=== PATIENT | female | born 1965 | race Caucasian/White ===

== ENCOUNTER 2025-02-06 12:26 | Outpatient (OUT) | payer OTHER, SELFPAY ==
--- NOTE | 2025-02-06 12:33 | ECG_ITS ---
[facility] Test Date: 2025-02-06 Pat Name: JUSTIN PATIÑO Department: Room: - Gender: Female Ground Host/Hostess: : 1965 Requested By: JACKIE CEBALLOS Order Number: [id number] Reading MD: WILLIAM MCALLISTER M.D. Measurements Intervals [place] Rate: 60 P: 62 ID: 159 QRS: -20 QRSD: 81 T: 24 QT: 402 QTc: 405 Interpretive Statements SINUS RHYTHM POSSIBLE LEFT ATRIAL ENLARGEMENT [-0.1mV P WAVE IN V1/V2] Abnormal ECG No previous ECG available for comparison Electronically Signed On 02-06-2025 21:11:22 EDT by WILLIAM MCALLISTER M.D.
== END 2025-02-06 12:27 | disposition home or self-care (01) ==
LOC: PST 12:27
PROVIDERS: PCP Nurse Practitioner Family; Visit Provider Obstetrics & Gynecology
DX: Z01.810 Encounter for preprocedural cardiovascular examination (principal); N95.0 Postmenopausal bleeding
CPT/HCPCS: 93005

== ENCOUNTER 2025-03-05 07:22 | Outpatient (OUT) | payer OTHER, SELFPAY ==
--- OUTSIDE RECORDS SUMMARY | 2025-03-05 07:25 | XMS_ITS | Clinical Summary ---
Author Organization [facility] Address [address] [place] [address] Care Team Providers Care Lacquer Dipping Machine Operator Name Role Phone Reyna Ferreira MD Primary Care Provider Allergies No known active allergies Medications Red Yeast Rice Extract (RED YEAST RICE PO) Take by mouth. Active glucosamine-cho ndroitin 500-400 MG tablet Take 1 tablet by mouth in the morning and 1 tablet in the evening and 1 tablet before bedtime. Active Collagen-Vitami n C-Biotin (COLLAGEN 1500/C PO) Take by mouth. Active Multiple Vitamin (multivitamin) capsule Take 1 capsule by mouth in the morning. Active LUTEIN PO Take by mouth. Active omega-3 (Fish Oil) 1000 MG capsule 1 capsule 1 (one) time each day at the same time. 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/2023 LPRD (laryngopharyngeal reflux disease) 08/30/20 23 Melanocytic nevi of trunk 08/30/2023 Sleep disorder 08/30/2023 Encounters Date Type Department Care Team Description 02/14/2025 Abstract [facility] [address] [address] Evelia Villaseñor LPN 02/12/2025 1:30 PM EDT Office Visit [facility] [address] [place] [address] Reyna Ferreira MD Abnormal EKG; Left atrial enlargement 02/12/2025 Travel 02/11/2025 3:00 PM EDT Office Visit [facility] [address] [place] [address] Joyce Bruno NP Abnormal finding on EKG (Primary Dx) 02/11/20[address] [facility] [address] [place] [phone] Jackie Myers DO 02/11/2025 Telephone [facility] [address] [place] [address] Reyna Baez MA 02/11/2025 Travel 02/11/2025 Telephone [facility] [address] [place] [address] Lora March MA 02/06/2025 Clinisync Result Encounter [facility] External Department Unsolicited Jackie Myers DO 01/25/2025 Results Follow-Up [facility] [address] [place] [address] Reyna Ferreira MD 01/24/2025 Results Follow-Up [facility] [address] [place] [address] Aan Velez NP Elevated liver enzymes (Primary Dx) 01/23/2025 2:20 PM EDT Consult [facility] [address] [place] [phone] Jackie Myers DO Pre-op examination; Post-menopausal bleeding 01/23/2025 9:30 AM EDT Office Visit [facility] [address] [place] [phone] Dina Chicas NP Dysuria (Primary Dx); Acute cystitis with hematuria 01/23/2025 Bamboo flowsheet [facility] [address] [place] [phone] Dina Chicas NP 01/23/2025 Travel 01/08/2025 2:40 PM EDT Consult [facility] [address] [facility] [place] [phone] Jackie Myers, DO Post-menopausal bleeding 01/08/2025 Bamboo flowsheet [facility] [address] [facility] [place] [phone] Jackie Myers, 01/01/2025 Telephone [facility] [address] [place] [address] Lisseth Hebert MA 01/01/2025 Telephone [facility] [address] [facility] [place] [address] Reyna Ferreira MD 12/31/2024 Telephone [facility] [address] [facility] [place] [address] Jayleen Tran MA 12/28/2024 2:45 PM EDT Ancillary Procedure [facility] [address] [facility] [address] [place] [address] Screening mammogram for breast cancer 12/28/2024 2:00 PM EDT Ancillary Procedure [facility] [address] [facility] [address] [place] [address] Post-menopausal bleeding 12/28/2024 Travel 12/17/2024 1:30 PM EDT Office Visit [facility] [address] [place] [address] Dina Chicas NP Encounter for wellness examination in adult (Primary Dx); Post-menopausal bleeding; Screening mammogram for breast cancer; Hypertriglyceridemi a (CMS/HCC) ; LPRD (laryngopharyngeal reflux disease); Sleep disorder; Screening for diabetes mellitus (DM); Screening for deficiency anemia 12/17/2024 Bamboo flowsheet [facility] [address] [facility] [place] [address] Dina Chicas NP 12/17/2024 Travel from Last 3 Months Immunizations Immunization Administration Dates Next Due Influenza Whole 08/06/2010 Influenza, injectable, MDCK, preservative free, quadrivalent 08/08/2023,07/28/2022 Influenza, injectable, MDCK, quadrivalent 08/15/2019 Influenza, injectable, quadrivalent 07/26/2017 Influenza, injectable, quadr ivalent, preservative free 07/26/2020 Influenza, seasonal, injectable 08/11/2021,08/29 Influenza, seasonal, injecta ble, preservative free 08/10/2024,08/18/2016,08/19/2015,2012 Family History Medical History Relation Name Comments Cancer Cousin Breast Alzheimer's disease Father Cancer Father melanoma on lori t Heart disease Father Cancer Maternal Grandmother Breast Cancer Mother Breast @ age la te 50's Diverticulitis Mother Hypertension Mother Hypertension Sister Relation Name Status Comments Cousin Father Maternal Grandmother Mother Alive Sister Social History Tobacco Use Types Packs/Day Years Used Date Smoking Tobacco: Never Smokeless Tobacco: Never Tobacco Cessation:Counseling Given: Not Answered Alcohol Use Standard Drinks/Week Comments Yes 2 (1 standard drink = 0.6 oz pur e alcohol) caffeine: none AUDIT-C Answer Date Recorded Q1: How often do you have a drink containing alc ohol? 2-4 times a month 08/30/2023 Q2: How many drinks containi ng alcohol do you have on a typical day when you are drinking? 1 or 2 08/30/2023 Q3: How often do you have si x or more drinks on one occasion? Never 08/30/2023 PHQ-2 Answer Date Recorded Patient Health Questionnaire-2 Score 0 02/12/2025 Comments Unknown Sex and Gender Information Value Date Recorded Sex Assigned at Not on file Legal Sex Female 7:28 PM EDT Gender Identity Not on file Sexual Orientation Not on file Last Filed Vital Signs Vital Sign Reading Time Taken Comments Blood Pressure 110/58 02/12/2025 1:28 PM EDT Pulse 73 02/12/2025 1:28 PM EDT Temperature 36.4 C (97.5 F) 01/23/2025 9:33 AM EDT Respiratory Rate 18 12/17/2024 1:27 PM EDT Oxygen Saturation 97% 02/12/2025 1:28 PM EDT Inhaled Oxygen Concentration - - Weight 63.2 kg (139 lb 6.4 oz) 02/12/2025 1:28 P M EDT Height 160 cm (5' 3 ) 02/12/2025 1:28 PM EDT Body Mass Index 24.69 02/12/2025 1:28 PM EDT Plan of Treatment Health Maintenance Due Date Last Done Comments CT Colonography 1965 FIT-DNA 1965 FIT 1965 FOBT 1965 Sigmoidoscopy 1965 Pap Smear 1986 Mammogram 12/28/2025 12/28/2024, 11/0 03/2023, 06/22/2022, Additional history exists Colonoscopy 09/12/2027 09/12/2017 Colorectal Cancer Screening 09/12/2027 Cervical Cancer Screening 08/10/2028 HPV/Cotest 08/10/2028 08/10/2023 Influenza Vaccine Completed 08/10/2024, , 07/28/2022, Additional history exists Procedures Procedure Name Priority Date/Time Associated Diagnosis Comments ECG 12-LEAD 02/06/2025 12:55 PM EDT CULTURE, URINE, ROUTINE Routine 01/23/2025 10:09 AM EDT Dysuria TSH W/REFLEX TO FT4 Routine 01/23/2025 9 :51 AM EDT Encounter for wellness examination in adult LIPID PANEL Routine 01/23/2025 9:51 AM EDT Encounter for wellness examination in adult Hypertriglyceridemi a (CMS/HCC) CBC (INCLUDES DIFF/PLT) Routine 01/23/2025 9:51 AM EDT Encounter for wellness examination in adult Screening for deficiency anemia COMPREHENSIVE METABOLIC PANEL Routine 01/23/2025 9:51 AM EDT Encounter for wellness examination in adult Screening for diabetes mellitus (DM) POCT URINALYSIS DIPSTICK Routine 01/23/2025 9:47 AM EDT Dysuria BI MAMMOGRAM SCREENING TOMOSYNTHESIS BILATERAL Routine 12/28/2024 2:20 PM EDT Screening mammogram for breast cancer US PELVIS TRANSVAGINAL Routine 2:19 PM EDT Post-menopausal bleeding COLONOSCOPY Routine 09/12/2017 12:00 PM EST from Last 3 Months or Most Recently Relevant to Health Maintenance Results * ECG 12-LEAD (02/06/2025 12:55 PM EDT) Anatomical Region Laterality Modality Other 02/06/2025 12:5 5 PM EDT Narrative 02/06/2025 9:11 [place] [address] Electrocardiograph Report Signed Patient: MINDY MONSIVAIS MR#: [id number] : 1965 Acct:[id number] Age/Sex: 59 / F ADM Date: 02/06/25 Loc: PST Attending Dr: Jackie Myers D.O. Ordering Physician: Jackie Myers D.O. Date of Service: 02/06/25 Procedure(s): ECG 12 lead Accession Number(s): [id number] cc: [facility] Test Date: 2025-02-06 Pat Name: MINDY MONSIVAIS Department: Room: - Gender: Female Rn Digestive: : 1965 Requested By: JACKIE MYERS Order Number: [id number] Reading MD: WILLIAM MCALLISTER M.D. Measurements Intervals [place] Rate: 60 P: 62 IN: 159 QRS: -20 QRSD: 81 T: 24 QT: 402 QTc: 405 Interpretive Statements SINUS RHYTHM POSSIBLE LEFT ATRIAL ENLARGEMENT [-0.1mV P WAVE IN V1/V2] Abnormal ECG No previous ECG available for comparison Electronically Signed On 02-06-2025 21:11:22 EDT by WILLIAM MCALLISTER M.D. Dictated By: WILLIAM MCALLISTER Signed By: 02/06/25 2111 DD/ 1255 TD/TT: Bleacher Sulfite Pulp: Procedure Note Radiology, Radiologist, - 02/06/2025 [place] [address] Electrocardiograph Report Signed Patient: MINDY MONSIVAISMR#: [id number] : 1965Acct:[id number] Age/Sex: 59 / FADM Date: 02/06/25 Loc: PST Attending Dr: Jackie Myers D.O. Ordering Physician: Jackie Myers D.O. Date of Service: 02/06/25 Procedure(s): ECG 12 lead Accession Number(s): [id number] cc: [facility] Test Date: 2025-02-06 Pat Name: MINDY MONSIVAIS Department: Room: - Gender: Female Rn Digestive: : 1965 Requested By: JACKIE MYERS Order Number: [id number] Reading MD: WILLIAM MCALLISTER M.D. Measurements Intervals [place] Rate: 60 P: 62 IN: 159 QRS: -20 QRSD: 81 T: 24 QT: 402 QTc: 405 Interpretive Statements SINUS RHYTHM POSSIBLE LEFT ATRIAL ENLARGEMENT [-0.1mV P WAVE IN V1/V2] Abnormal ECG No previous ECG available for comparison Electronically Signed On 02-06-2025 21:11:22 EDT by WILLIAM MCALLISTER M.D. Dictated By: WILLIAM MCALLISTER Signed By:02/06/25 2111 DD/ 1255 TD/TT: Bleacher Sulfite Pulp: us Jackie Myers DO [facility] Final Result * Urine culture (01/23/2025 10:09 AM EDT) MICRO NUMBER [id number] [facility] SPECIMEN QUALITY Adequate [facility] SOURCE: ([facility]) URINE [facility] STATUS FINAL [facility] RESULT SEE NOTE [facility] Comment: No Growth Urine Urine specimen obtained by clean catch procedure / Unknown 01/23/2025 10:09 AM EDT 01/23/2025 3:37 PM EDT Narrative Resulting Agency Comment Performing Organization Information Site ID: QPT Name: [facility] Address: [address] [place] [address], [address] [place] [phone] Director: Jeff Ca MD Dina Chicas NP LAB MICROBIOLOGY - GENE RAL ORDERABLES Final Result Performing Organization Address [facility] de Phone Number [facility] * TSH W/REFLEX TO FT4 (01/23/2025 9:51 AM EDT) Pathologist [facility] TSH W/REFLEX TO FT4 3.88 0.40 - 4.50 mIU/L [facility] 01/23/2025 9:51 AM EDT 01/23/2025 9:51 AM EDT Narrative Resulting Agency Comment Performing Organization Information Site ID: QPT Name: [facility] Address: [address] [place] [address], [address] [place] [phone] Director: Jeff Ca MD Dina Chicas NP LAB BLOOD ORDERABLES Fi nal Result Performing Organization Address [facility] de Phone Number [facility] * CBC and differential (01/23/2025 9:51 AM EDT) Pathologist [facility] WHITE BLOOD CELL COUNT 3.8 3.8 - 10.8 Thousand/u L [facility] RED BLOOD CELL COUNT 4.33 3.80 - 5.10 Million/uL [facility] HEMOGLOBIN 13.2 11.7 - 15.5 g/dL [facility] HEMATOCRIT 39.8 35.0 - 45.0 % [facility] MCV 91.9 80.0 - 100.0 fL [facility] MCH 30.5 27.0 - 33.0 pg [facility] MCHC 33.2 32.0 - 36.0 g/dL [facility] Comment: For adults, a slight decrease in the calculated MCHC value (in the range of 30 to 32 g/dL) is most likely not clinically significant; however, it should be interpreted with caution in correlation with other red cell parameters and the patient's clinical condition. RDW 12.1 11.0 - 15.0 % [facility] PLATELET COUNT 265 140 - 400 Thousand/u L [facility] MPV 10.9 7.5 - 12.5 fL [facility] ABSOLUTE NEUTROPHILS 2,086 1,500 - 7,800 cells/uL [facility] ABSOLUTE LYMPHOCYTES 1,262 850 - 3,900 cells/uL [facility] ABSOLUTE MONOCYTES 312 200 - 950 cells/uL [facility] ABSOLUTE EOSINOPHILS 110 15 - 500 cells/uL [facility] ABSOLUTE BASOPHILS 30 0 - 200 cells/uL [facility] NEUTROPHILS 54.9 % [facility] LYMPHOCYTES 33.2 % [facility] MONOCYTES 8.2 % [facility] EOSINOPHILS 2.9 % [facility] BASOPHILS 0.8 % [facility] Blood Venous blood specimen / Unknown 01/23/2025 9:51 AM EDT 01/23/2025 9:51 AM EDT Narrative Resulting Agency Comment Performing Organization Information Site ID: QPT Name: [facility] Address: [address] [place] [address], [address] [place] [phone] Director: Jeff Ca MD Dina Chicas NP LAB BLOOD ORDERABLES Fi nal Result [facility] * (ABNORMAL) Lipid panel (01/23/2025 9:51 AM EDT) CHOLESTEROL, TOTAL 197 <200 mg/dL [facility] HDL CHOLESTEROL 60 > OR = 50 mg/dL [facility] TRIGLYCERIDES 77 <150 mg/dL [facility] LDL-CHOLESTEROL 120(H) mg/dL (calc) [facility] Comment: Reference range: <100 Desirable range <100 mg/dL for primary prevention; <70 mg/dL for patients with CHD or diabetic patients with > or = 2 CHD risk factors. LDL-C is now calculated using the Jose Guadalupe-Brianna calculation, which is a validated novel method providing better accuracy than the Friedewald equation in the estimation of LDL-C. Jose Guadalupe SS et al. ALYSE. 2013;310(19): 8942-2940 (http://education.[employer].Grapeshot/faq/YKH659) CHOL/HDLC RATIO 3.3 <5.0 (calc) [facility] NON HDL CHOLESTEROL 137(H) <130 mg/dL (calc) [facility] Comment: For patients with diabetes plus 1 major ASCVD risk factor, treating to a non-HDL-C goal of <100 mg/dL (LDL-C of <70 mg/dL) is considered a therapeutic option. Blood Venous blood specimen / Unknown 01/23/2025 9:51 AM EDT 01/23/2025 9:51 AM EDT Narrative Resulting Agency Comment Performing Organization Information Site ID: QPT Name: [facility] Address: [address] [place] [address], [address] [place] [phone] Director: Jeff Ca MD us Dina Chicas ADMINISTRATIVE AIDE LAB BLOOD ORDERABLES Fi nal Result [facility] * (ABNORMAL) Comprehensive metabolic panel (01/23/2025 9:51 AM EDT) [facility] Glucose 99 65 - 99 mg/dL [facility] Comment: Fasting reference interval BUN 16 7 - 25 mg/dL [facility] Creatinine 0.68 0.50 - 1.03 mg/dL [facility] EGFR 100 > OR = 60 mL/min/1. 73m2 [facility] BUN/CREATININE RATIO SEE NOTE: 6 - 22 (calc) [facility] Comment: Not Reported: BUN and Creatinine are within reference range. Sodium 139 135 - 146 mmol/L [facility] Potassium, Bld 4.0 3.5 - 5.3 mmol/L [facility] Chloride 102 98 - 110 mmol/L [facility] Carbon Dioxide 26 20 - 32 mmol/L [facility] Calcium 9.7 8.6 - 10.4 mg/dL [facility] PROTEIN, TOTAL 6.8 6.1 - 8.1 g/dL [facility] ALBUMIN 4.4 3.6 - 5.1 g/dL [facility] GLOBULIN 2.4 1.9 - 3.7 g/dL (calc) [facility] ALBUMIN/GLOBULIN RATIO 1.8 1.0 - 2.5 (calc) [facility] BILIRUBIN, TOTAL 0.5 0.2 - 1.2 mg/dL [facility] ALKALINE PHOSPHATASE 71 37 - 153 U/L [facility] AST 26 10 - 35 U/L [facility] ALT 40(H) 6 - 29 U/L [facility] Blood Venous blood specimen / Unknown 01/23/2025 9:51 AM EDT 01/23/2025 9:51 AM EDT Narrative Resulting Agency Comment Performing Organization Information Site ID: QPT Name: [facility] Address: [address] [place] [address], [address] [place] [phone] Director: Jeff Ca MD us Dina Chicas ADMINISTRATIVE AIDE LAB BLOOD ORDERABLES Fi nal Result [facility] * POCT urinalysis dipstick manually resulted (01/23/2025 9:47 AM EDT) Color, UA Yellow Clarity, UA Clear Glucose, UA Negative Negative - 2000(110) ++++ mg/dL Bilirubin, UA Negative Negative - 4(70) +++ mg/dL Ketones, UA Positive Negative - 160(16) ++++ mg/dL Spec Grav, UA 1.005 1 - 1.03 Blood, UA Positive Negative - 50 Lorenzo/mcL pH, UA 6.5 5 - 9 Protein, UA Positive Negative - 2000(20) ++++ mg/dL Urobilinogen, UA 1.0 0.2 - 12 mg/dL Leukocytes, UA Positive Negative - 500+++ Sanjuanita/mcL Nitrite, UA Negative Negative - Positive Urine 01/23/2025 9:47 AM EDT Dina Chicas NP POINT OF CARE TEST ENTE R/EDIT ORDERABLES Final Result * Bilateral screening mammogram with tomosynthesis (12/28/2024 2:20 PM EDT) Anatomical Region Laterality Modality Breast Bilateral Mammography 12/29/2024 4:25 PM EDT Impressions 12/29/2024 4:30 PM EDT Impression: No specific evidence of malignancy seen in either breast. BIRADS 2 - Benign Findings DENSITY: The breasts are heterogeneously dense, which may obscure small masses. FOLLOW-UP: Routine Screening Mammogram ELECTRONICALLY SIGNED BY: Jameson Connell M.D. Narrative 12/29/2024 4:30 PM EDT Examination: BI MAMMOGRAM SCREENING TOMOSYNTHESIS BILATERAL Clinical History: screening for breast cancer Technique: Screening digital mammography study of both breasts was performed with 2-D and 3-D tomosynthesis imaging. Study was compared to the prior exam dated 08/15/2023. Findings: There is no evidence of interval dominant spiculated mass, grouped microcalcifications, or skin thickening which would be suggestive of malignancy. A few benign-appearing calcifications are seen bilaterally. Axillary lymph nodes are noted bilaterally which appear grossly unremarkable. Procedure Note Jameson Connell MD - 12/29/2024 Examination: BI MAMMOGRAM SCREENING TOMOSYNTHESIS BILATERAL Clinical History: screening for breast cancer Technique: Screening digital mammography study of both breasts wasperformed with 2-D and 3-D tomosynthesis imaging. Study was compared tothe prior exam dated 08/15/2023. Findings: There is no evidence of interval dominant spiculated mass,grouped microcalcifications, or skin thickening which would be suggestiveof malignancy. A few benign-appearing calcifications are seen bilaterally. Axillary lymphnodes are noted bilaterally which appear grossly unremarkable. IMPRESSION: Impression: No specific evidence of malignancy seen in either breast. BIRADS 2 - Benign Findings DENSITY: The breasts are heterogeneously dense, which may obscure smallmasses. FOLLOW-UP: Routine Screening Mammogram ELECTRONICALLY SIGNED BY: Jameson Connell M.D. us Dina Chicas ADMINISTRATIVE AIDE IMG BI PROCEDURES Final Result * US pelvis transvaginal (12/28/2024 2:19 PM EDT) Anatomical Region Laterality Modality Pelvis Ultrasound 12/28/2024 6:00 PM EDT Narrative 12/28/2024 6:00 PM EDT EXAM: Pelvic Ultrasound, Transvaginal. REASON FOR EXAM: Postmenopausal bleeding. COMPARISON: None TECHNIQUE: Longitudinal and transverse grayscale, color Doppler images of the pelvis obtained endovaginally. FINDINGS: The uterus is normal size and position. The endometrium is hyperechoic, heterogeneous and upper limits of normal for thickness. No pelvic free fluid. The ovaries are of normal size. Color Doppler is present. Limited in evaluation. Measurements: Uterus: 6.8 x 3.3 x 4.3 cm EM: 0.9 cm Right Ovary: 1.7 x 0.9 x 1.1 cm Left Ovary: 1.8 x 1.0 x 1.6 cm IMPRESSION: 1. Hyperechoic heterogeneous endometrium of normal thickness, likely secretory phase of menstruation. 2. Ovaries are not enlarged, however, Doppler images are limited. This report is generated using voice recognition reporting ([employer]). On occasion, Powerscribe erroneously drops words from the report or replaces the spoken word with a similar sounding word. Please call with any questions/concerns regarding the report. Dictated and transcribed 12/28/2024 This report has been electronically signed and approved by the interpreting radiologist. Procedure Note Galo Mcfarlane MD - 12/28/2024 EXAM: Pelvic Ultrasound, Transvaginal. REASON FOR EXAM: Postmenopausal bleeding. COMPARISON: None TECHNIQUE: Longitudinal and transverse grayscale, color Doppler images ofthe pelvis obtained endovaginally. FINDINGS: The uterus is normal size and position. The endometrium is hyperechoic, heterogeneous and upper limits of normalfor thickness. No pelvic free fluid. The ovaries are of normal size. Color Doppler is present. Limited inevaluation. Measurements: Uterus: 6.8 x 3.3 x 4.3 cm EM: 0.9 cm Right Ovary: 1.7 x 0.9 x 1.1 cm Left Ovary: 1.8 x 1.0 x 1.6 cm IMPRESSION: 1. Hyperechoic heterogeneous endometrium of normal thickness, likelysecretory phase of menstruation. 2. Ovaries are not enlarged, however, Doppler images are limited. This report is generated using voice recognition reporting ([employer]).On occasion, [employer] erroneously drops words from the report orreplaces the spoken word with a similar sounding word. Please call withany questions/concerns regarding the report. Dictated and transcribed 12/28/2024 This report has been electronically signed and approved by theinterpreting radiologist. Dina Chicas ADMINISTRATIVE AIDE IMG US PROCEDURES Final Result * Colonoscopy (09/12/2017 12:00 PM EST) Anatomical Region Laterality Modality Endoscopy 09/12/2017 12:0 0 PM EST Narrative 09/12/2017 12:00 PM EST PERFORMED AT [facility] LOCATION:[id number] mild sigmoid diverticulosis Procedure Note CONVERSION, GENERIC - 02/24/2023 PERFORMED AT [facility] LOCATION:[id number] mild sigmoid diverticulosis Conner Walker ENDOSCOPY PROCEDURE ORDERABLES F inal Result from Last 3 Months or Most Recently Relevant to Health Maintenance Insurance [place] [employer] Care Teams Lacquer Dipping Machine Operator Relationship Specialty Start Date End Date Reyna Ferreira MD [address] [place], [place] [id number] PCP - General Family Medicine 02/15/23
--- OUTSIDE RECORDS SUMMARY | 2025-03-05 07:25 | XMS_ITS | Encounter Summary ---
Author Organization [facility] Address [address] [place] [address] Care Team Providers Care Test Desk Trouble Locator Name Role Phone Reyna Ferreira MD Primary Care Provider [phone] Encounter Details Date Type Department Care Team (Late st Contact Info) Description 01/24/2025 Results Follow-Up [facility] [address] [place] [phone] Ana Velez, RACING DRIVER [address] [place] [address] Elevated liver enzymes (Primary Dx) Social History Tobacco Use Types Packs/Day Years Used Date Smoking Tobacco: Never Smokeless Tobacco: Never Alcohol Use Standard Drinks/Week Comments Yes 0 (1 standard drink = 0.6 oz pur [...] Answer Date Recorded Patient Health Questionnaire-2 Score 1 08/30/2023 Comments Unknown Sex and Gender Information Value Date Recorded Sex Assigned at Not on file Legal Sex Female 7:28 PM EDT Gender Identity Not on file Sexual Orientation Not on file documented as of this encounter Plan of Treatment Scheduled Orders Name Type Priority Associated Diagnoses Orde r Schedule ALT Lab Routine Elevated liver enzymes Expected: 02/23/2025 (Approximate), Expires: 01/24/2026 documented as of this encounter Visit Diagnoses Diagnosis Elevated liver enzymes- Primary Other nonspecific abnormal serum enzyme levels documented in this encounter Care Teams Test Desk Trouble Locator Relationship Specialty Start Date End Date Reyna Ferreira MD [address] [place] [address] PCP - General Family Medicine 02/15/23 documented as of this encounter
--- OUTSIDE RECORDS SUMMARY | 2025-03-05 07:25 | XMS_ITS | Encounter Summary ---
Author Organization [facility] Address [address] [place] [address] Care Team Providers Care Space Systems Operations Superintendent Name Role Phone Reyna Ferreira MD Primary Care Provider [phone] Encounter Details Date Type Department Care Team (Late st Contact Info) Description 08/30/2023 Abstract [facility] [address] [place] [address] Reyna Ferreira MD [address] [place], [place] [id number] Social History Tobacco Use Types Packs/Day Years [...] on file documented as of this encounter Functional Status * Audit-C Score Answer Date of Assessment Author 2 08/30/2023 11:06 AM Vicki Brewster MA * Question Answer Date of Assessment Author Q1: How often do you have a drink containing alcohol? 2-4 times a month 08/30/2023 11:06 AM Vicki Brewster MA Q2: How many drinks containing alcohol do you have on a typical day when you are drinking? 1 or 2 08/30/2023 11:06 AM Vicki Brewster MA Q3: How often do you have six or more drinks on one occasion? Never 08/30/2023 11:06 AM Vicki Brewster MA * Over the past 2 weeks, how often have you been bothered by any of the following problems? Question Answer Date of Assessment Author Little interest or pleasure in doing things Not at all 08/30/2023 11:00 AM Vicki Brewster MA Feeling down, depressed, or hopeless Several days 08/30/2023 11:00 AM Vicki Brewster MA Patient Health Questionnaire -2 Score 1 08/30/2023 11:00 AM Vicki Brewster MA * If you checked off any problems on this questionnaire so far, Question Answer Date of Assessment Author How difficult have these problems made it for you to do your work, take care of things at home, or get along with other people? Not difficult at all 08/30/2023 11:00 AM Vicki Brewster M A documented as of this encounter Plan of Treatment Not on file documented as of this encounter Visit Diagnoses Not on filedocumented in this encounter Care Teams Space Systems Operations Superintendent Relationship Specialty Start Date End Date Reyna Ferreira MD [address] [place] [address] PCP - General Family Medicine 02/15/23 documented as of this encounter
--- OUTSIDE RECORDS SUMMARY | 2025-03-05 07:25 | XMS_ITS | Encounter Summary ---
Author Organization [facility] Address [address] [place] [address] Care Team Providers Care Bulk Loader Name Role Phone Reyna Ferreira MD Primary Care Provider [phone] Encounter Details Date Type Department Care Team (Late st Contact Info) Description 02/14/2025 Abstract [facility] [address] [place] [address] Evelia Villaseñor LPN Social History Tobacco Use Types Packs/Day Years Used Date Smoking Tobacco: Never Smokeless Tobacco: Never Alcohol Use Standard Drinks/Week Comments Yes 2 [...] on filedocumented in this encounter Care Teams Bulk Loader Relationship Specialty Start Date End Date Reyna Ferreira MD [address] [place], [place] [id number] PCP - General Family Medicine 02/15/23 documented as of this encounter
--- OUTSIDE RECORDS SUMMARY | 2025-03-05 07:25 | XMS_ITS | Encounter Summary ---
Author Organization [facility] Address [address] [place] [address] Care Team Providers Care Roll Out Manager Name Role Phone Reyna Ferreira MD Primary Care Provider [phone] Encounter Details Date Type Department Care Team (Late st Contact Info) Description 08/31/2023 Abstract [facility] [address] [place] [address] Reyna Ferreira MD [address] [place], [place] [id number] Social History Tobacco Use Types Packs/Day Years [...] on filedocumented in this encounter Care Teams Roll Out Manager Relationship Specialty Start Date End Date Reyna Ferreira MD [address] [place] [address] PCP - General Family Medicine 02/15/23 documented as of this encounter
--- OUTSIDE RECORDS SUMMARY | 2025-03-05 07:25 | XMS_ITS | Encounter Summary ---
Author Organization [facility] tem Address [id number] [address] [place] [address] Care Team Providers Care Unix Engineer Name Role Phone Dina Chicas LOAD OUT WORKER-DIRECTOR OF HEAD START Primary Care Pro vider Reason for Visit * Reason Onset Date Comments GENETICS 03/31/2021 CLERICAL Encounter Details Date Type Department Care Team (Late st Contact Info) Description 03/31/2021 Telephone [facility] Division of [facility] - Medical Oncology [address] [phone] Celi Pham, [facility] [address] [facility] [address] [place] [address] GENETICS (CLERICAL) Social History Tobacco Use Types Packs/Day Years Used Date Smoking Tobacco: Never Cigarettes Smokeless Tobacco: Never Alcohol Use Standard Drinks/Week Comments Yes 4 (1 standard drink = 0.6 oz pur e alcohol) Childcare Answer Date Recorded Childcare Unknown 03/21/2019 Employment Answer Date Recorded Employment Unknown 03/21/2019 Purpose - Life Answer Date Recorded Purpose and direction in life Unknown Comments No Sex and Gender Information Value Date Recorded Sex Assigned at Not on file Legal Sex Female 11:51 AM EDT Gender Identity Not on file Sexual Orientation Not on file COVID-19 Exposure Response Date Recorded In the last month, have you been in contact with someone who was confirmed or suspected to have Coronavirus / COVID-19? No / Unsure 03/19/2021 1:01 PM EDT documented as of this encounter Miscellaneous Notes * Telephone Encounter - Louisa Amaya - 03/31/2021 9:30 AM EDT LVM on 03/31/2021 at 9:31 AM asking patient to return call to schedule genetics appointment. PRADEEP * Telephone Encounter - Louisa Amaya - 03/31/2021 9:30 AM EDT 04/01/2021 at 1:51 PM PT RETURNED CALL. GAVE COMPLIANCE INFO, PT TO TALK OVER W/HER AND WILLCALL US BACK DJO documented in this encounter Plan of Treatment Not on file documented as of this encounter Visit Diagnoses Not on filedocumented in this encounter Care Teams Unix Engineer Relationship Specialty Start Date End Date Dina Chicas, ROSARIO-DIRECTOR OF HEAD START [address] [place] [address] PCP - General Internal Medicine 05/01/20 documented as of this encounter
--- OUTSIDE RECORDS SUMMARY | 2025-03-05 07:25 | XMS_ITS | Clinical Summary ---
Author Organization [facility] Address [facility] [id number] [address] [place] [address] Care Team Providers Care Commercial Intern Name Role Phone Dina Chicas PLANNING OFFICIAL-METAL BUILDINGS ASSEMBLER Primary Care Pro vider Allergies No known active allergies Medications No known medications Active Problems No known active problems Family History Medical History Relation Name Comments Breast cancer Cousin 1 Cayla Breast cancer Cousin 2 Dolores Cancer Father Melanoma Heart disease Father Hypertension Father Breast cancer Maternal Aunt also had recu rrance at age 70 Breast cancer Maternal Grandmother Breast cancer Maternal Uncle Breast cancer Mother Hypertension Mother Hypertension Sister Relation Name Status Comments Cousin 1 Cayla Cousin 2 Dolores Father Maternal Aunt Maternal Grandmother Maternal Uncle Mother Sister Social History Tobacco Use Types Packs/Day Years Used Date Smoking Tobacco: Never Smokeless Tobacco: Never Alcohol Use Standard Drinks/Week Comments Yes 4 (1 standard drink = 0.6 oz pur e alcohol) PHQ-2 Answer Date Recorded Total Score 0 08/10/2023 Childcare Answer Date Recorded Childcare Unknown 03/21/2019 Employment Answer Date Recorded Employment Unknown 03/21/2019 Hunger Screening Answer Date Recorded Within the past 12 months we worried whether our food would run out before we got money to buy more. Never True 08/10/2023 Within the past 12 months th e food we bought just didn't last and we didn't have money to get more. Never True 08/10/2023 Purpose - Life Answer Date Recorded Purpose and direction in life Unknown Comments No Sex and Gender Information Value Date Recorded Sex Assigned at Not on file Legal Sex Female 11:51 AM EDT Gender Identity Not on file Sexual Orientation Not on file Last Filed Vital Signs Vital Sign Reading Time Taken Comments Blood Pressure 122/78 08/10/2023 3:10 PM EDT Pulse 78 03/19/2021 1:22 PM EDT Temperature - - Respiratory Rate 16 03/19/2021 1:22 PM EDT Oxygen Saturation 97% 09/12/2017 9:00 AM EST Inhaled Oxygen Concentration - - Weight 63.1 kg (139 lb 3.2 oz) 08/10/2023 3:10 P M EDT Height 160 cm (5' 3 ) 03/19/2021 1:22 PM EDT Body Mass Index 24.66 03/19/2021 1:22 PM EDT Plan of Treatment Health Maintenance Due Date Last Done Comments DTaP,Tdap and Td Vaccines (1 - Tdap) 1984 Zoster (Shingles) Vaccine (1 of 2) 2015 COVID-19 Vaccine (4 - 2023-2 5 season) 2024 08/29/2021, 01/29/2021, 01/01/2021 Adult BMI Screening 08/10/2024 08/10/2023 Depression Screening 08/10/2024 08/10/2023 Tobacco Screening 08/10/2024 08/10/2023 Influenza Vaccine 06/10/2025 08/08/2023, , 08/11/2021, Additional history exists Pap Smear 08/10/2026 08/10/2023, 10/2022, 08/15/2017, Additional history exists Medical Devices Not on file Procedures Procedure Name Priority Date/Time Associated Diagnosis Comments HIGH RISK HPV W/MARIIA Routine 08/10/2023 4:57 AM EDT Smear, vaginal, as part of routine gynecological examination from Last 3 Months or Most Recently Relevant to Health Maintenance Results * High risk HPV w/mariia (08/10/2023 4:57 AM EDT) Hpv specimen type ThinPrep 08/11/2023 4:58 AM EDT [facility] Hpv 16 Negative Negative^N egative 08/11/2023 1:42 PM EDT [facility] Hpv 18 Negative Negative^N egative 08/11/2023 1:42 PM EDT [facility] Other high risk hpv Negative Negative^N egative 08/11/2023 1:42 PM EDT [facility] Comment: HPV types 31,33,35,39,45,52,56,58,59,66 and 68 DNA were undetectable. THINP 08/10/2023 4:57 AM EDT 08/11/2023 4:58 AM EDT us Suzy Lewis PLANNING OFFICIAL-[facility] LAB BLOOD ORDERABLES F inal Result [facility] [address] [place] [address] [facility] [address] [place] [address], [address] [place] [address] from Last 3 Months or Most Recently Relevant to Health Maintenance Insurance [employer] Care Teams Commercial Intern Relationship Specialty Start Date End Date Dina Chicas APRN-METAL BUILDINGS ASSEMBLER [address] [id number] PCP - General Internal Medicine 05/01/20
--- OUTSIDE RECORDS SUMMARY | 2025-03-05 07:25 | XMS_ITS | Encounter Summary ---
Author Organization [facility] Address [address] [place] [address] Care Team Providers Care Floatlight Powder Mixer Name Role Phone Reyna Ferreira MD Primary Care Provider [phone] Encounter Details Date Type Department Care Team (Late st Contact Info) Description 01/25/2025 Results Follow-Up [facility] [address] [place] [address] Reyna Ferreira MD [address] [place], [place] [phone] Social History Tobacco Use Types Packs/Day Years [...] on file documented as of this encounter Miscellaneous Notes * Result Encounter Note - Dina Chicas NP - 01/28/2025 9:24 AM EDT Perfect thanks * Result Encounter Note - Dina Chicas NP - 01/28/2025 8:43 AM EDT Let patient know her culture was negative. Is she still having symptoms? documented in this encounter Plan of Treatment Not on file documented as of this encounter Visit Diagnoses Not on filedocumented in this encounter Care Teams Floatlight Powder Mixer Relationship Specialty Start Date End Date Reyna Ferreira MD [address] [place] [address] PCP - General Family Medicine 02/15/23 documented as of this encounter
--- NOTE | 2025-03-05 07:30 | CA_ITS ---
Patient Name: JUSTIN PATIÑO MR#: [id number] : 1965 Exam Date: 03/05/2025 Ordering Doctor: DR SHAN WILSON M.D. ECHOCARDIOGRAM REPORT PROCEDURE: CA ECHO DOPPLER COMPLETE INDICATIONS: Abnormal ECG COMPARISON: None. DESCRIPTION: COMPLETE ECHOCARDIOGRAM Real-time transthoracic echocardiography with 2D, M-mode, spectral and color flow Doppler performed. QUALITY: Technical quality was good. LEFT VENTRICLE: Normal chamber size. Normal left ventricular wall thickness. Normal systolic function. LV EF: Calculated left ventricular ejection fraction is 56%. Normal left ventricular ejection fraction, (>55%). DIASTOLIC: Normal diastolic function. ATRIAL SEPTUM: Visually appears intact. LEFT ATRIUM: Normal chamber size. RIGHT ATRIUM: Normal chamber size. RIGHT VENTRICLE: Normal chamber size. Normal right ventricular systolic function. TRICUSPID VALVE: Normal mobility and thickness. No stenosis with trivial regurgitation. No evidence of pulmonary hypertension. RVSP 31 mmHg MITRAL VALVE: Normal mobility and thickness. No evidence of mitral valve stenosis. There is no mitral annular calcification. Mild mitral regurgitation. AORTIC VALVE: Normal trileaflet appearance. No visible sclerosis. Normal leaflet mobility. No evidence of aortic valve stenosis. Trivial aortic regurgitation. AORTIC ROOT: Normal diameter and appearance, measuring 3.0 cm. Ascending aorta is normal in size, measuring 2.9 cm. PULMONIC VALVE: Normal thickness and mobility. No stenosis. Mild regurgitation. PERICARDIUM: No evidence of pericardial effusion. IVC: Collapses with inspirations. IVC is normal in size. PLEURA: CONCLUSION: 1. Normal left ventricular size and systolic function. Estimated LVEF is 55 to 60%. 2. Normal right ventricular size and systolic function. 3. Normal diastolic function. 4. Mild mitral and pulmonic regurgitation. 5. Normal right-sided pressures. Adult Echocardiography Procedure Report Left Ventricle LVEDD (3.7 - 5.6 cm): 4.46 cm LVESD (2.2 - 4.0 cm): 2.90 cm LVIVS thickness (0.6 - 1.2 cm): 0.95 cm LVPW thickness (0.5 - 1.0 cm): 0.95 cm e': 0.13 m/s E - e': 6.84 LVOT Max Gradient: 3.67 mm[Hg] LVOT Area (cm2): 0.96 m/s Peak Velocity (LVOT): 0.96 m/s Mean Velocity (LVOT): 0.68 m/s LVOT Diameter 2.14 cm Left Atrium LA Volume Index (2D A2C): 27.71 ml/m2 Left Atrium Systolic Dimension: 3.70 cm Mitral Valve MV E to A Ratio: 1.28 Mitral Valve A-Wave Peak Velocity: 0.69 m/s Mitral Valve E-Wave Peak Velocity: 0.89 m/s Right Ventricle Aorta AO Root Diam: 3.04 cm Ascending Ao Diam: 2.90 cm Aortic Valve AoV Area (Peak Maxim): 3.04 cm2, 3.04 cm2 AoV Area (VTI): 2.61 cm2, 2.61 cm2 Peak Velocity(Antegrade Flow): 1.14 m/s Peak Gradient(Antegrade Flow): 5.18 mm[Hg] Mean Velocity(Antegrade Flow): 0.78 m/s Mean Gradient(Antegrade Flow): 2.81 mm[Hg] Velocity Time Integral: 29.01 cm Tricuspid Valve Peak Velocity (Regurgitant Flow): 2.64 m/s Pulmonic Valve Mean Gradient: 2.04 mm[Hg] Mean Velocity: 0.65 m/s Peak Velocity: 1.02 m/s, 0.93 m/s Peak Gradient: 3.48 mm[Hg], 4.18 mm[Hg] Right Atrium Right Atrium Systolic Pressure: 22.75 ml, 22.75 ml Dictated by: Wilfredo Oneil M.D. on 03/05/2025 at 13:24 Approved by: Wilfredo Oneil M.D. on 03/05/2025 at 13:27
== END 2025-03-05 07:23 | disposition home or self-care (01) ==
LOC: CARD 07:22
PROVIDERS: PCP Nurse Practitioner Family; Visit Provider Family Medicine
DX: R94.31 Abnormal electrocardiogram [ECG] [EKG] (principal); I51.7 Cardiomegaly
CPT/HCPCS: 93306

== ENCOUNTER 2025-04-09 10:05 | Outpatient (OUT) | payer OTHER, SELFPAY | END 2025-04-09 10:06 | disposition home or self-care (01) | LOC: PST 10:05 | PROVIDERS: PCP Nurse Practitioner Family; Visit Provider Obstetrics & Gynecology | DX: Z01.818 Encounter for other preprocedural examination (principal); N95.0 Postmenopausal bleeding ==

== ENCOUNTER 2025-04-18 06:12 | Day surgery (SDC) | payer OTHER, SELFPAY ==
[2025-02-06 12:50] VITALS: BP 128/73; PULSE 64; TEMP 36.4; O2SAT 99; BMI 24.3
--- OUTSIDE RECORDS SUMMARY | 2025-04-18 06:16 | XMS_ITS | Clinical Summary ---
Author Organization [facility] Address [address] [place] [address] Care Team Providers Care Trimmer Hand Name Role Phone Reyna Wilson MD Primary Care Provider [phone] Allergies No known active allergies Medications Red [...] Active LUTEIN PO Take by mouth. 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 LPRD (laryngopharyngeal reflux disease) 08/30/20 23 Melanocytic nevi of trunk 08/30/2023 Sleep disorder 08/30/2023 Encounters Date Type Department Care Team Description 03/05/2025 Results Follow-Up [facility] [address] [place] [phone] Reyna Wilson MD 03/05/2025 Clinisync Result Encounter [facility] External Department Unsolicited Reyna Wilson MD 02/14/2025 Abstract [facility] [address] [place] [phone] Evelia Villaseñor LPN 02/12/2025 1:30 PM EDT Office Visit [facility] [address] [facility] [place] [phone] Reyna Wilson MD Abnormal EKG; Left atrial enlargement 02/12/2025 Travel 02/11/2025 3:00 PM EDT Office Visit [facility] [address] [facility] [place] [address] Joyce Bruno NP Abnormal finding on EKG (Primary Dx) 02/11/2025 Telephone [facility] [address] [facility] [place] [address] Jackie Myers DO 02/11/2025 Telephone [facility] [address] [facility] [place] [address] Reyna Baez MA 02/11/2025 Travel 02/11/2025 Telephone [facility] [address] [facility] [place] [address] Lora March MA 02/06/2025 Clinisync Result Encounter [facility] External Department Unsolicited Jackie Myers DO 01/25/2025 Results Follow-Up [facility] [address] [facility] [place] [address] Reyna Wilson MD 01/24/2025 Results Follow-Up [facility] [address] [facility] [place] [address] Ana Velez NP Elevated liver enzymes (Primary Dx) 01/23/2025 2:20 PM EDT Consult [facility] [address] [facility] [place] [address] Jackie Myers DO Pre-op examination; Post-menopausal bleeding 01/23/2025 9:30 AM EDT Office Visit [facility] [address] [facility] [place] [address] Dina Chicas NP Dysuria (Primary Dx); Acute cystitis with hematuria 01/23/2025 Bamboo flowsheet [facility] [address] [place] [address] Dina Chicas NP 01/23/2025 Travel from Last 3 Months Immunizations Immunization [...] FOBT 1965 Sigmoidoscopy 1965 Pap Smear 1986 Influenza Vaccine (#1) 2025 , 08/08/2023, 07/28/2022, Additional history exists Mammogram 12/28/2025 12/28/2024, 11/0 03/2023, 06/22/2022, Additional history exists Colonoscopy 09/12/2027 09/12/2017 Colorectal Cancer Screening 09/12/2027 Cervical Cancer Screening 08/10/2028 HPV/Cotest 08/10/2028 08/10/2023 Procedures Procedure Name Priority Date/Time Associated Diagnosis Comments CA ECHO DOPPLER COMPLETE 03/05/2025 1:27 PM EDT ECG 12-LEAD 02/06/2025 12:55 PM EDT CULTURE, URINE, ROUTINE Routine 01/23/2025 10:09 AM EDT Dysuria TSH W/REFLEX TO FT4 Routine 01/23/2025 9 :51 AM EDT Encounter for wellness examination in adult LIPID PANEL Routine 01/23/2025 9:51 AM EDT Encounter for wellness examination in adult Hypertriglyceridemi a CBC (INCLUDES DIFF/PLT) Routine 01/23/2025 9:51 AM EDT Encounter for wellness examination in adult Screening for deficiency anemia COMPREHENSIVE METABOLIC PANEL Routine 01/23/2025 9:51 AM EDT Encounter for wellness examination in adult Screening for diabetes mellitus (DM) POCT URINALYSIS DIPSTICK Routine 01/23/2025 9:47 AM EDT Dysuria BI MAMMOGRAM SCREENING TOMOSYNTHESIS BILATERAL Routine 12/28/2024 2:20 PM EDT Screening mammogram for breast cancer COLONOSCOPY Routine 09/12/2017 12:00 PM EST from Last 3 Months or Most Recently Relevant to Health Maintenance Results * CA ECHO DOPPLER COMPLETE (03/05/2025 1:27 PM EDT) Anatomical Region Laterality Modality Other 03/05/2025 1:27 PM EDT Narrative 03/05/2025 1:28 [place] [address] Cardiology Report Signed Patient: MINDY MONSIVAIS MR#: [id number] : 1965 Acct:[id number] Age/Sex: 59 / F ADM Date: 03/05/25 Loc: CARD Attending Dr: REYNA WILSON Ordering Physician: REYNA WILSON Date of Service: 03/05/25 Procedure(s): CA echo doppler complete Accession Number(s): [id number] cc: Dina Chicas FOLDER SEAMER; REYNA WILSON Patient Name: MINDY MONSIVAIS MR#: [id number] : 1965 Exam Date: 03/05/2025 Ordering Doctor: DR REYNA WILSON M.D. ECHOCARDIOGRAM REPORT PROCEDURE: CA ECHO DOPPLER COMPLETE INDICATIONS: Abnormal ECG COMPARISON: None. DESCRIPTION: COMPLETE ECHOCARDIOGRAM Real-time transthoracic echocardiography with 2D, M-mode, spectral and color flow Doppler performed. QUALITY: Technical quality was good. LEFT VENTRICLE: Normal chamber size. Normal left ventricular wall thickness. Normal systolic function. LV EF: Calculated left ventricular ejection fraction is 56%. Normal left ventricular ejection fraction, (>55%). DIASTOLIC: Normal diastolic function. ATRIAL SEPTUM: Visually appears intact. LEFT ATRIUM: Normal chamber size. RIGHT ATRIUM: Normal chamber size. RIGHT VENTRICLE: Normal chamber size. Normal right ventricular systolic function. TRICUSPID VALVE: Normal mobility and thickness. No stenosis with trivial regurgitation. No evidence of pulmonary hypertension. RVSP 31 mmHg MITRAL VALVE: Normal mobility and thickness. No evidence of mitral valve stenosis. There is no mitral annular calcification. Mild mitral regurgitation. AORTIC VALVE: Normal trileaflet appearance. No visible sclerosis. Normal leaflet mobility. No evidence of aortic valve stenosis. Trivial aortic regurgitation. AORTIC ROOT: Normal diameter and appearance, measuring 3.0 cm. Ascending aorta is normal in size, measuring 2.9 cm. PULMONIC VALVE: Normal thickness and mobility. No stenosis. Mild regurgitation. PERICARDIUM: No evidence of pericardial effusion. IVC: Collapses with inspirations. IVC is normal in size. PLEURA: CONCLUSION: 1. Normal left ventricular size and systolic function. Estimated LVEF is 55 to 60%. 2. Normal right ventricular size and systolic function. 3. Normal diastolic function. 4. Mild mitral and pulmonic regurgitation. 5. Normal right-sided pressures. Adult Echocardiography Procedure Report Left Ventricle LVEDD (3.7 - 5.6 cm): 4.46 cm LVESD (2.2 - 4.0 cm): 2.90 cm LVIVS thickness (0.6 - 1.2 cm): 0.95 cm LVPW thickness (0.5 - 1.0 cm): 0.95 cm e': 0.13 m/s E - e': 6.84 LVOT Max Gradient: 3.67 mm[Hg] LVOT Area (cm2): 0.96 m/s Peak Velocity (LVOT): 0.96 m/s Mean Velocity (LVOT): 0.68 m/s LVOT Diameter 2.14 cm Left Atrium LA Volume Index (2D A2C): 27.71 ml/m2 Left Atrium Systolic Dimension: 3.70 cm Mitral Valve MV E to A Ratio: 1.28 Mitral Valve A-Wave Peak Velocity: 0.69 m/s Mitral Valve E-Wave Peak Velocity: 0.89 m/s Right Ventricle Aorta AO Root Diam: 3.04 cm Ascending Ao Diam: 2.90 cm Aortic Valve AoV Area (Peak Maxim): 3.04 cm2, 3.04 cm2 AoV Area (VTI): 2.61 cm2, 2.61 cm2 Peak Velocity(Antegrade Flow): 1.14 m/s Peak Gradient(Antegrade Flow): 5.18 mm[Hg] Mean Velocity(Antegrade Flow): 0.78 m/s Mean Gradient(Antegrade Flow): 2.81 mm[Hg] Velocity Time Integral: 29.01 cm Tricuspid Valve Peak Velocity (Regurgitant Flow): 2.64 m/s Pulmonic Valve Mean Gradient: 2.04 mm[Hg] Mean Velocity: 0.65 m/s Peak Velocity: 1.02 m/s, 0.93 m/s Peak Gradient: 3.48 mm[Hg], 4.18 mm[Hg] Right Atrium Right Atrium Systolic Pressure: 22.75 ml, 22.75 ml Dictated by: William Mcallister M.D. on 03/05/2025 at 13:24 Approved by: William Mcallister M.D. on 03/05/2025 at 13:27 Dictated By: WLILIAM MCALLISTER Signed By: 03/05/25 1328 DD/ 1327 TD/TT: Submarine Diver: Procedure Note Radiology, Radiologist, MD - 03/05/2025 [place] [address] Cardiology Report Signed Patient: MINDY MONSIVAISMR#: [id number] : 1965Acct:[id number] Age/Sex: 59 / FADM Date: 03/05/25 Loc: CARD Attending Dr: REYNA WILSON Ordering Physician: REYNA WILSON Date of Service: 03/05/25 Procedure(s): CA echo doppler complete Accession Number(s): [id number] cc: Dina Chicas FOLDER SEAMER; REYNA WILSON Patient Name: MINDY MONSIVAIS MR#: [id number] : 1965 Exam Date: 03/05/2025 Ordering Doctor: DR REYNA WILSON M.D. ECHOCARDIOGRAM REPORT PROCEDURE: CA ECHO DOPPLER COMPLETE INDICATIONS: Abnormal ECG COMPARISON: None. DESCRIPTION: COMPLETE ECHOCARDIOGRAM Real-time transthoracic echocardiography with 2D, M-mode, spectral and color flow Dopplerperformed. QUALITY: Technical quality was good. LEFT VENTRICLE: Normal chamber size. Normal left ventricular wall thickness. Normal systolic function. LV EF: Calculated left ventricular ejection fraction is 56%. Normalleft ventricular ejection fraction, (>55%). DIASTOLIC: Normal diastolic function. ATRIAL SEPTUM: Visually appears intact. LEFT ATRIUM: Normal chamber size. RIGHT ATRIUM: Normal chamber size. RIGHT VENTRICLE: Normal chamber size. Normal right ventricularsystolic function. TRICUSPID VALVE: Normal mobility and thickness. No stenosis withtrivial regurgitation. No evidence of pulmonary hypertension. RVSP 31 mmHg MITRAL VALVE: Normal mobility and thickness. No evidence of mitralvalve stenosis. There is no mitral annular calcification. Mild mitral regurgitation. AORTIC VALVE: Normal trileaflet appearance. No visible sclerosis.Normal leaflet mobility. No evidence of aortic valve stenosis. Trivial aortic regurgitation. AORTIC ROOT: Normal diameter and appearance, measuring 3.0 cm.Ascending aorta is normal in size, measuring 2.9 cm. PULMONIC VALVE: Normal thickness and mobility. No stenosis. Mild regurgitation. PERICARDIUM: No evidence of pericardial effusion. IVC: Collapses with inspirations. IVC is normal in size. PLEURA: CONCLUSION: 1. Normal left ventricular size and systolic function. Estimated LVEF is55 to 60%. 2. Normal right ventricular size and systolic function. 3. Normal diastolic function. 4. Mild mitral and pulmonic regurgitation. 5. Normal right-sided pressures. Adult Echocardiography Procedure Report Left Ventricle LVEDD (3.7 - 5.6 cm): 4.46 cm LVESD (2.2 - 4.0 cm): 2.90 cm LVIVS thickness (0.6 - 1.2 cm): 0.95 cm LVPW thickness (0.5 - 1.0 cm): 0.95 cm e': 0.13 m/s E - e': 6.84 LVOT Max Gradient: 3.67 mm[Hg] LVOT Area (cm2): 0.96 m/s Peak Velocity (LVOT): 0.96 m/s Mean Velocity (LVOT): 0.68 m/s LVOT Diameter 2.14 cm Left Atrium LA Volume Index (2D A2C): 27.71 ml/m2 Left Atrium Systolic Dimension: 3.70 cm Mitral Valve MV E to A Ratio: 1.28 Mitral Valve A-Wave Peak Velocity: 0.69 m/s Mitral Valve E-Wave Peak Velocity: 0.89 m/s Right Ventricle Aorta AO Root Diam: 3.04 cm Ascending Ao Diam: 2.90 cm Aortic Valve AoV Area (Peak Maxim): 3.04 cm2, 3.04 cm2 AoV Area (VTI): 2.61 cm2, 2.61 cm2 Peak Velocity(Antegrade Flow): 1.14 m/s Peak Gradient(Antegrade Flow): 5.18 mm[Hg] Mean Velocity(Antegrade Flow): 0.78 m/s Mean Gradient(Antegrade Flow): 2.81 mm[Hg] Velocity Time Integral: 29.01 cm Tricuspid Valve Peak Velocity (Regurgitant Flow): 2.64 m/s Pulmonic Valve Mean Gradient: 2.04 mm[Hg] Mean Velocity: 0.65 m/s Peak Velocity: 1.02 m/s, 0.93 m/s Peak Gradient: 3.48 mm[Hg], 4.18 mm[Hg] Right Atrium Right Atrium Systolic Pressure: 22.75 ml, 22.75 ml Dictated by: William Mcallister M.D. on 03/05/2025 at 13:24 Approved by: William Mcallister M.D. on 03/05/2025 at 13:27 Dictated By: WILLIAM MCALLISTER Signed By:03/05/25 1328 DD/ 26 TD/TT: Submarine Diver: us Reyna Wilson MD [facility] Final Resul t * ECG 12-LEAD (02/06/2025 12:55 PM EDT) Anatomical Region Laterality Modality Other 02/06/2025 12:5 5 PM EDT Narrative 02/06/2025 9:11 [place] [address] Electrocardiograph Report Signed Patient: MINDY MONSIVAIS MR#: [id number] : 1965 Acct:[id number] Age/Sex: 59 / F ADM Date: 02/06/25 Loc: PST Attending Dr: Jackie Myers D.O. Ordering Physician: Jackie Myers D.O. Date of Service: 02/06/25 Procedure(s): ECG 12 lead Accession Number(s): [id number] cc: [facility] Test Date: 2025-02-06 Pat Name: MINDY MONSIVAIS Department: Room: - Gender: Female Programmer Numerical Control: : 1965 Requested By: JACKIE MYERS Order Number: [id number] Reading MD: WILLIAM MCALLISTER M.D. Measurements Intervals [place] Rate: 60 P: 62 CO: 159 QRS: -20 QRSD: 81 T: 24 QT: 402 QTc: 405 Interpretive Statements SINUS RHYTHM POSSIBLE LEFT ATRIAL ENLARGEMENT [-0.1mV P WAVE IN V1/V2] Abnormal ECG No previous ECG available for comparison Electronically Signed On 02-06-2025 21:11:22 EDT by WILLIAM MCALLISTER M.D. Dictated By: WILLIAM MCALLISTER Signed By: 02/06/252110 DD/ 1255 TD/TT: Submarine Diver: Procedure Note Radiology, Radiologist, MD - 02/06/2025 [place] [address] Electrocardiograph Report Signed Patient: MINDY MONSIVAISMR#: [id number] : 1965Acct:[id number] Age/Sex: 59 / FADM Date: 02/06/25 Loc: [facility] Attending Dr: Jackie Myers D.O. Ordering Physician: Jackie Myers D.O. Date of Service: 02/06/25 Procedure(s): ECG 12 lead Accession Number(s): [id number] cc: [facility] Test Date: 2025-02-06 Pat Name: MINDY MONSIVAIS Department: Room: - Gender: Female Programmer Numerical Control: : 1965 Requested By: JACKIE MYERS Order Number: [id number] Reading MD: WILLIAM MCALLISTER M.D. Measurements Intervals [place] Rate: 60 P: 62 CO: 159 QRS: -20 QRSD: 81 T: 24 QT: 402 QTc: 405 Interpretive Statements SINUS RHYTHM POSSIBLE LEFT ATRIAL ENLARGEMENT [-0.1mV P WAVE IN V1/V2] Abnormal ECG No previous ECG available for comparison Electronically Signed On 02-06-2025 21:11:22 EDT by WILLIAM MCALLISTER M.D. Dictated By: WILLIAM MCALLISTER Signed By:02/06/25 2111 DD/ 1255 TD/TT: Submarine Diver: us Jackie Lucia DO [facility] Final Result * Urine culture (01/23/2025 10:09 AM EDT) MICRO NUMBER [id number] [facility] SPECIMEN QUALITY Adequate [facility] SOURCE: ([facility]) URINE [facility] STATUS FINAL [facility] RESULT SEE NOTE [facility] Comment: No Growth Urine Urine specimen obtained by clean catch procedure / Unknown 01/23/2025 10:09 AM EDT 01/23/2025 3:37 PM EDT Narrative Resulting Agency Comment Performing Organization Information Site ID: QPT Name: [facility] Address: [address] [place] [address], [address] [place] [phone] Director: Jeff Ca MD Dina Chicas FOLDER SEAMER LAB MICROBIOLOGY - GENE RAL ORDERABLES Final Result Performing Organization Address [facility] de Phone Number [facility] * TSH W/REFLEX TO FT4 (01/23/2025 9:51 AM EDT) Pathologist [facility] TSH W/REFLEX TO FT4 3.88 0.40 - 4.50 mIU/L [facility] 01/23/2025 9:51 AM EDT 01/23/2025 9:51 AM EDT Narrative Resulting Agency Comment Performing Organization Information Site ID: QPT Name: [facility] Address: [address] [place] [address], [address] [place] [phone] Director: Jeff Ca MD us Dina Chicas FOLDER SEAMER LAB BLOOD ORDERABLES Fi nal Result Performing Organization Address [facility] Co de Phone Number [facility] * CBC and differential (01/23/2025 9:51 AM EDT) Pathologist [facility] WHITE BLOOD CELL COUNT 3.8 3.8 - [...] Performing Organization Information Site ID: QPT Name: [facility] Address: [address] [place] [address], [address] [place] [phone] Director: Jeff Ca MD us Dina Chicas NP LAB BLOOD ORDERABLES Fi nal Result [facility] * (ABNORMAL) Lipid panel (01/23/2025 9:51 AM EDT) Pathologist [facility] CHOLESTEROL, TOTAL 197 <200 mg/dL [facility] HDL CHOLESTEROL 60 > OR = 50 mg/dL [facility] TRIGLYCERIDES 77 <150 mg/dL [facility] LDL CHOLESTEROL 120(H) mg/dL (calc) [facility] Comment: Reference range: <100 Desirable range <100 mg/dL for primary prevention; <70 mg/dL for patients with CHD or diabetic patients with > or = 2 CHD risk factors. LDL-C is now calculated using the Bettye calculation, which is a validated novel method providing better accuracy than the Friedewald equation in the estimation of LDL-C. Jose Guadalupe SPENCER et al. ALYSE. 2013;310(19): 3986-4332 (http://education.Familink.Autopilot (formerly Bislr)/faq/MVF749) CHOL/HDLC RATIO 3.3 <5.0 (calc) [facility] NON [...] Performing Organization Information Site ID: QPT Name: [facility] Address: [address] [place] [address], [address] [place] [phone] Director: Jeff Ca MD Dina Chicas NP LAB BLOOD ORDERABLES Fi nal Result [facility] * (ABNORMAL) Comprehensive metabolic panel (01/23/2025 9:51 AM EDT) [facility] Glucose 99 65 - 99 mg/dL [facility] Comment: Fasting reference interval BUN 16 7 - 25 mg/dL [facility] Creatinine 0.68 0.50 - 1.03 mg/dL [facility] EGFR 100 > OR = 60 mL/min/1. 73m2 [facility] BUN/CREATININE RATIO SEE NOTE: 6 - (calc) [facility] Comment: Not Reported: BUN and [...] Performing Organization Information Site ID: QPT Name: [facility] Address: [address] [place] [address], [address] [place] [phone] Director: Jeff Ca MD Dina Chicas NP [...] Mammogram ELECTRONICALLY SIGNED BY: Jameson Connell M.D. Dina Chicas NP IMG BI PROCEDURES Final Result * Colonoscopy (09/12/2017 12:00 PM EST) Anatomical Region Laterality Modality Endoscopy 09/12/2017 12:0 0 PM EST Narrative 09/12/2017 12:00 PM EST PERFORMED AT [facility] LOCATION:[id number] mild sigmoid diverticulosis Procedure Note CONVERSION, GENERIC - 02/24/2023 PERFORMED AT [facility] LOCATION:[id number] mild sigmoid diverticulosis Conner Walker ENDOSCOPY PROCEDURE ORDERABLES F inal Result from Last 3 Months or Most Recently Relevant to Health Maintenance Insurance [employer] Care Teams Trimmer Hand Relationship Specialty Start Date End Date Reyna Wilson MD [address] [place] [address] PCP - General Family Medicine 02/15/23
--- OUTSIDE RECORDS SUMMARY | 2025-04-18 06:16 | XMS_ITS | Encounter Summary ---
Author Organization [facility] tem Address [id number] [address] [place] [address] Care Team Providers Care Contact Agent Name Role Phone Dina Chicas CURTAIN INSPECTOR-MANAGER COMMUNICATION Primary Care Pro vider Reason for Visit * Reason Onset Date Comments GENETICS 03/31/2021 CLERICAL Encounter Details Date Type Department Care Team (Late st Contact Info) Description 03/31/2021 Telephone [facility] Division of [facility] - Medical Oncology [address] [place] [phone] Celi Pham, [facility] [address] [facility] [address] [place] [address] GENETICS (CLERICAL) Social History Tobacco Use Types [...] on filedocumented in this encounter Care Teams Contact Agent Relationship Specialty Start Date End Date Dina Chicas, ROSARIO-MANAGER COMMUNICATION [address] [place] [address] PCP - General Internal Medicine 05/01/20 documented as of this encounter
--- OUTSIDE RECORDS SUMMARY | 2025-04-18 06:16 | XMS_ITS | Clinical Summary ---
Author Organization [employer] tem Address [id number] [address] [place] [address] Care Team Providers Care Bag Adjuster Name Role Phone Dina Chicas INTERNATIONAL MARKETING MANAGER-REFERENCE TEST CLERK Primary Care Pro vider Allergies No known [...] specimen type ThinPrep 08/11/2023 4:58 AM EDT [facility] Hpv 16 Negative Negative^N egative 08/11/2023 1:42 PM EDT [facility] Hpv 18 Negative Negative^N egative 08/11/2023 1:42 PM EDT [facility] Other high risk hpv Negative Negative^N egative 08/11/2023 1:42 PM EDT [facility] Comment: HPV types 31,33,35,39,45,52,56,58,59,66 and 68 DNA were undetectable. THINP 08/10/2023 4:57 AM EDT 08/11/2023 4:58 AM EDT us Suzy Lewis INTERNATIONAL MARKETING MANAGER-CNM LAB BLOOD ORDERABLES F inal Result [facility] [address] [facility] [place] [address] [facility] [address] [place] [address], [address] [place] [address] from Last 3 Months or Most Recently Relevant to Health Maintenance Insurance [employer] Care Teams Bag Adjuster Relationship Specialty Start Date End Date Dina Chicas APRN-REFERENCE TEST CLERK [address] [phone] PCP - General Internal Medicine 05/01/20
--- OUTSIDE RECORDS SUMMARY | 2025-04-18 06:16 | XMS_ITS | Encounter Summary ---
Author Organization [facility] Address [address] [place] [address] Care Team Providers Care Termite Helper Name Role Phone Reyna [place] MD Primary Care Provider [phone] Encounter Details Date Type Department Care Team (Late st Contact Info) Description 08/31/2023 Abstract [facility] [address] [place] [address] Reyna Ferreira MD [address] [place], [place] [phone] Social History Tobacco Use Types Packs/Day Years [...] on filedocumented in this encounter Care Teams Termite Helper Relationship Specialty Start Date End Date Reyna Ferreira MD [address] [place] [address] PCP - General Family Medicine 02/15/23 documented as of this encounter
--- OUTSIDE RECORDS SUMMARY | 2025-04-18 06:16 | XMS_ITS | Encounter Summary ---
Author Organization [facility] Address [address] [place] [address] Care Team Providers Care Caul Fat Puller Name Role Phone Reyna Ferreira MD Primary Care Provider Encounter Details Date Type Department Care Team (Late st Contact Info) Description 01/24/2025 Results Follow-Up [facility] [address] [place] [address] Ana Velez HELPER ELECTRICAL [address] [facility] [address] [place] [phone] Elevated liver enzymes (Primary Dx) Social History [...] levels documented in this encounter Care Teams Caul Fat Puller Relationship Specialty Start Date End Date Reyna Ferreira MD [address] [place] [address] PCP - General Family Medicine 02/15/23 documented as of this encounter
--- OUTSIDE RECORDS SUMMARY | 2025-04-18 06:16 | XMS_ITS | Encounter Summary ---
Author Organization [facility] Address [address] [place] [address] Care Team Providers Care Health Educator Name Role Phone Reyna Ferreira MD Primary Care Provider [phone] Encounter Details Date Type Department Care Team (Late st Contact Info) Description 02/14/2025 Abstract [facility] [address] [facility] [place] [address] Evelia Villaseñor LPN Social History Tobacco [...] on filedocumented in this encounter Care Teams Health Educator Relationship Specialty Start Date End Date Reyna Ferreira MD [address] [place], [place] [phone] PCP - General Family Medicine 02/15/23 documented as of this encounter
--- OUTSIDE RECORDS SUMMARY | 2025-04-18 06:16 | XMS_ITS | Encounter Summary ---
Author Organization [facility] Address [address] [place] [address] Care Team Providers Care Deicer Inspector Electric Name Role Phone Reyna Ferreira MD Primary Care Provider [phone] Encounter Details Date Type Department Care Team (Late st Contact Info) Description 08/30/2023 Abstract [facility] [address] [place] [address] Reyna Ferreira MD [address] [place], [place] [phone] Social History Tobacco Use Types Packs/Day Years [...] on filedocumented in this encounter Care Teams Deicer Inspector Electric Relationship Specialty Start Date End Date Reyna Ferreira MD [address] [place] [address] PCP - General Family Medicine 02/15/23 documented as of this encounter
[2025-04-18 06:19] LABS: Hematocrit 41.5 % (36.0-48.0); Hemoglobin 13.7 g/dL (12.0-16.0); Immature Granulocytes Abs Auto 0.01 10^3/uL (0.00-0.03); Immature Granulocytes Pct Auto 0.2 % (0.0-0.5); Lymphocytes Absolute Auto 1.8 10^3/uL (1.2-3.8); Mean Corpuscular HGB Conc 33.0 g/dL (29.9-35.2); Mean Corpuscular Hemoglobin 30.0 pg (26.7-34.0); Mean Corpuscular Volume 91.0 fL (81.0-99.0); Platelet Count 235 10^3/uL (150-450); Red Blood Count 4.56 10^6/uL (4.20-5.40); White Blood Count 4.5 10^3/uL (4.0-11.0)
[2025-04-18 06:20] VITALS: BP 135/77; PULSE 62; TEMP 36.2; O2SAT 98; BMI 24.0
--- NOTE | 2025-04-18 07:53 | PM.ONB ---
Brief Operative Note Date of procedure: 04/18/25 Pre-op diagnosis general: pmb, thickend endometrium Post-op diagnosis: other (uterine polyp) Procedure: NAME OF PROCEDURE: [ D&c hysteroscopy with myosure] PROCEDURE: The patient was taken back to the Operating Room where she was prepped and draped in normal sterile fashion after being placed under general anesthesia without difficulty. She was also placed in the dorsal lithotomy position. A weighted speculum was placed in the patient?s vagina. The anterior lip of the cervix was identified and grasped with a single tooth tenaculum. The patient?s uterus was then sounded roughly to [? 8] cm. The patient was then gently dilated using Hegar dilators. The hysteroscope was passed through the patient?s cervix into the uterus. Both ostia were identified. fluffy appearing endometrium. No gross evidence of malignancy, no gross evidence of polyps or fibroids. The myosure apparatus was placed through the scope, The myosure was engaged and endometrial curretting were removed along with endometrial polyp, The hysteroscope was then removed from the uterus. The endometrial curettings were sent out to pathology. The single tooth tenaculum was then removed from the patient's anterior lip of the cervix where excellent hemostasis was noted. All instruments were removed from the patient?s vagina. The patient tolerated the procedure well. Sponge, lap and needle counts were correct times two. The patient was taken to the Recovery Room in stable condition.Room in stable condition. Anesthesia: MAC Surgeon: Dwight Myers Estimated blood loss (mL): 5 Pathology: other (endometrial curretting, uterine polyp) Condition: stable Disposition: PACU Urinary Catheter Management Urinary Catheter Management Straight: Cath placed during this visit: no
[2025-04-18 07:59] VITALS: BP 117/68; PULSE 57; TEMP 36.8; O2SAT 94
[2025-04-18 08:14] VITALS: BP 132/76; PULSE 61; O2SAT 96
[2025-04-18 08:29] VITALS: BP 142/75; PULSE 55; O2SAT 100
--- NOTE | 2025-04-18 08:38 | PC.NURSE ---
Denies urge to void; small amount pink bleeding noted on peripad
[2025-04-18 08:59] VITALS: BP 137/70; PULSE 48; O2SAT 100
--- NOTE | 2025-04-18 09:04 | PC.NURSE ---
No increase in drainage on peripad
--- NOTE | 2025-04-18 09:11 | PC.NURSE ---
Up to bathroom and voided pink urine without clots
== END 2025-04-18 09:12 | disposition home or self-care (01) ==
LOC: SURGOUT 06:13
PROVIDERS: PCP Nurse Practitioner Family; Visit Provider Obstetrics & Gynecology
PROC: (CPT 952; principal; 2025-04-18 07:30)
DX: N95.0 Postmenopausal bleeding (principal); R93.89 Abnormal findings on diagnostic imaging of other specified body structures; N84.0 Polyp of corpus uteri
CPT/HCPCS: 58558; 36415; 85025; 88305; J1100; J1885; J2250; J2405; J2704; J3010